=== PATIENT | female | born 1990 | race Caucasian/White ===

== ENCOUNTER → 2017-03-18 | Outpatient (CLI) | payer MEDICAID, SELFPAY | LOC: M RAD 13:46 | DX: M25.562 Pain in left knee (principal) | CPT/HCPCS: 73564 ==

== ENCOUNTER → 2017-03-21 | Outpatient (REF) | payer OTHER ==
[2017-03-21 12:26] LABS: ALBUMIN 3.7 GM/DL (3.2-5.2); ALBUMIN/GLOBULIN RATIO 1.28 (1.00-1.93); ALKALINE PHOSPHATASE 137 U/L (45-117); ALT/SGPT 18 U/L (12-78); ANION GAP 6 MEQ/L (8-16); AST/SGOT 11 U/L (7-37); BILIRUBIN,TOTAL 0.3 MG/DL (0.2-1.0); BLOOD UREA NITROGEN 18 MG/DL (7-18); CALCIUM LEVEL 8.5 MG/DL (8.5-10.1); CARBON DIOXIDE LEVEL 27 MEQ/L (21-32); CHLORIDE LEVEL 107 MEQ/L (98-107); CHOLESTEROL LEVEL 140 MG/DL (<200); CHOLESTEROL RISK RATIO 3.333 (<5); CREATININE FOR GFR 0.51 MG/DL (0.55-1.02); FREE T4 0.97 NG/DL (0.76-1.46); GLOMERULAR FILTRATION RATE > 60.0 (>60); GLUCOSE, FASTING 78 MG/DL (70-105); HDL CHOLESTEROL 42 MG/DL (>40); LDL CHOLESTEROL 86.6 MG/DL (<100); NON-HDL-C 98 MG/DL; POTASSIUM SERUM 4.7 MEQ/L (3.5-5.1); SODIUM LEVEL 140 MEQ/L (136-145); TOTAL PROTEIN 6.6 GM/DL (6.4-8.2); TRIGLYCERIDES LEVEL 57 MG/DL (<150)
[2017-03-21 12:30] LABS: BASO # 0.1 10^3/uL (0.0-0.2); BASO % 0.6 % (0.0-1.0); EOS # 0.3 10^3/uL (0.0-0.50); EOS % 3.1 % (0.0-3.0); HEMATOCRIT 40.3 % (36.0-47.0); IMMATURE GRANULOCYTE # 0.1 10^3/uL (0-0); IMMATURE GRANULOCYTE % 0.5 % (0-0); LYMPH # 1.8 10^3/uL (1.5-6.5); MEAN CORPUSCULAR HEMOGLOBIN 30.2 pg (27.0-33.0); MEAN CORPUSCULAR HGB CONC 32.3 g/dl (32.0-36.5); MEAN CORPUSCULAR VOLUME 93.7 fl (80.0-96.0); MONO # 0.5 10^3/uL (0.0-0.8); MONO % 5.3 % (0.0-5.0); NEUTROPHILS # 7.3 10^3/uL (1.8-7.7); NEUTROPHILS % 72.5 % (36.0-66.0); PLATELET COUNT, AUTOMATED 428 10^3/uL (150-450); WHITE BLOOD COUNT 10.1 10^3/uL (4.0-10.0)
== END ==
LOC: M SFHCPLAZ 08:44
DX: M25.562 Pain in left knee (principal); F32.9 Major depressive disorder, single episode, unspecified; Z00.00 Encounter for general adult medical examination without abnormal findings; F17.200 Nicotine dependence, unspecified, uncomplicated; Z13.220 Encounter for screening for lipoid disorders

== ENCOUNTER → 2017-05-01 | Outpatient (REF) | payer MEDICAID ==
[2017-05-01 19:01] LABS: TOTAL 25(OH) VITAMIN D 16.8 NG/ML (30.0-100.0)
== END ==
LOC: M SFHCPLAZ 15:22
DX: R74.8 Abnormal levels of other serum enzymes (principal)
CPT/HCPCS: 82306

== ENCOUNTER → 2017-07-24 | Outpatient (REF) | payer OTHER ==
[2017-07-24 12:25] LABS: ALBUMIN 3.9 GM/DL (3.2-5.2); ALBUMIN/GLOBULIN RATIO 1.26 (1.00-1.93); ALKALINE PHOSPHATASE 120 U/L (45-117); ALT/SGPT 22 U/L (12-78); ANION GAP 5 MEQ/L (8-16); AST/SGOT 10 U/L (7-37); BILIRUBIN,TOTAL 0.3 MG/DL (0.2-1.0); BLOOD UREA NITROGEN 17 MG/DL (7-18); CALCIUM LEVEL 8.7 MG/DL (8.5-10.1); CARBON DIOXIDE LEVEL 26 MEQ/L (21-32); CHLORIDE LEVEL 109 MEQ/L (98-107); CREATININE FOR GFR 0.62 MG/DL (0.55-1.30); GLOMERULAR FILTRATION RATE > 60.0 (>60); GLUCOSE, FASTING 81 MG/DL (70-100); POTASSIUM SERUM 4.4 MEQ/L (3.5-5.1); SODIUM LEVEL 140 MEQ/L (136-145)
== END ==
LOC: M SFHCPLAZ 10:01
DX: R74.8 Abnormal levels of other serum enzymes (principal)
CPT/HCPCS: 80053

== ENCOUNTER 2017-12-11 11:13 | Inpatient (IN) | payer OTHER ==
[2017-12-11 12:18] LABS: HEMATOCRIT 38.7 % (36.0-47.0); HEMOGLOBIN 12.9 g/dl (12.0-15.5); MEAN CORPUSCULAR HEMOGLOBIN 32.4 pg (27.0-33.0); MEAN CORPUSCULAR HGB CONC 33.3 g/dl (32.0-36.5); MEAN CORPUSCULAR VOLUME 97.2 fl (80.0-96.0); PLATELET COUNT, AUTOMATED 262 10^3/uL (150-450); RED BLOOD COUNT 3.98 10^6/uL (4.00-5.40); RED CELL DISTRIBUTION WIDTH 11.7 % (11.5-14.5); WHITE BLOOD COUNT 10.8 10^3/uL (4.0-10.0)
[2017-12-11 12:41] LABS: CONTROL LINE HCG INT CTR LINE PRESENT; HCG, SERUM QUALITATIVE POSITIVE (NEGATIVE)
[2017-12-11 12:48] LABS: ACETAMINOPHEN LEVEL < 2.0 UG/ML (10.0-30.0); ALBUMIN 3.3 GM/DL (3.2-5.2); ALBUMIN/GLOBULIN RATIO 0.94 (1.00-1.93); ALKALINE PHOSPHATASE 110 U/L (45-117); ALT/SGPT 14 U/L (12-78); ANION GAP 10 MEQ/L (8-16); AST/SGOT 8 U/L (7-37); BILIRUBIN,DIRECT 0.1 MG/DL (0.0-0.2); BILIRUBIN,TOTAL 0.3 MG/DL (0.2-1.0); BLOOD UREA NITROGEN 7 MG/DL (7-18); CALCIUM LEVEL 8.3 MG/DL (8.5-10.1); CARBON DIOXIDE LEVEL 22 MEQ/L (21-32); CHLORIDE LEVEL 107 MEQ/L (98-107); CREATININE FOR GFR 0.53 MG/DL (0.55-1.30); ETHYL ALCOHOL (ETHANOL) < 0.003 % (0.000-0.010); GLOMERULAR FILTRATION RATE > 60.0 (>60); GLUCOSE, FASTING 91 MG/DL (70-100); POTASSIUM SERUM 3.7 MEQ/L (3.5-5.1); SALICYLATE LEVEL 3.9 MG/DL (5.0-30.0); SODIUM LEVEL 139 MEQ/L (136-145); THYROID STIMULATING HORMONE 0.864 uIU/ML (0.358-3.740); TOTAL PROTEIN 6.8 GM/DL (6.4-8.2)
[2017-12-11 12:51] LABS: AMPHETAMINES LEVEL URINE NEGATIVE (NEGATIVE); BARBITURATES URINE NEGATIVE (NEGATIVE); BENZODIAZEPINES URINE NEGATIVE (NEGATIVE); CANNABINOIDS URINE NEGATIVE (NEGATIVE); COCAINE METABOLITE URINE NEGATIVE (NEGATIVE); METHADONE URINE NEGATIVE (NEGATIVE); OPIATES URINE NEGATIVE (NEGATIVE); PHENCYCLIDINE URINE NEGATIVE (NEGATIVE)
[2017-12-11 13:40] LABS: HCG, SERUM QUANTITATIVE 2319 MIU/ML
[2017-12-11] MEDS ORDERED: OLANZapine ORAL DISINTEGRATING TAB 5MG PO (16:15)
[2017-12-11] MEDS ORDERED: ACETAMINOPHEN TAB 650MG DOSE (2X325MG) PO (16:15)
[2017-12-11] MEDS ORDERED: traZODone 50 MG TAB PO (16:15)
[2017-12-11] MEDS ORDERED: MAALOX 30 ML SUSP *UDC PO (16:15)
[2017-12-11] MEDS ORDERED: MOM 30ML SUSPENSION UDC PO (16:15)
[2017-12-11] MEDS ORDERED: hydrOXYzine 50 MG TAB PO (16:30)
[2017-12-11] MEDS: CALCIUM CARBONATE 500 MG CHEW U/D PO (18:57)
[2017-12-11] MEDS: NICOTINE POLACRILEX 2 MG GUM PO (18:58)
[2017-12-12] MEDS: NICOTINE 2 MG PO ×3 (08:29→13:08)
[2017-12-12] MEDS: PRENATAL VITAMINS CHEWABLE TABLET PO (11:04)
== END 2017-12-12 16:13 | disposition home or self-care (01) | DRG 566 ==
LOC: M ED 11:13 → M ED INP 16:06 → M PSY 17:06
DX: O99.342 Other mental disorders complicating pregnancy, second trimester (principal); R45.851 Suicidal ideations; Z3A.21 21 weeks gestation of pregnancy; O99.332 Smoking (tobacco) complicating pregnancy, second trimester; F17.210 Nicotine dependence, cigarettes, uncomplicated; D72.829 Elevated white blood cell count, unspecified; Z88.6 Allergy status to analgesic agent; Z88.5 Allergy status to narcotic agent; F32.9 Major depressive disorder, single episode, unspecified

== ENCOUNTER → 2018-06-05 | Outpatient (REF) | payer OTHER ==
[~2018-06-05] MED LIST: PRENTAB7 PO; prenatal PO
[2018-06-05 11:58] LABS: BASO # 0.1 10^3/uL (0.0-0.2); BASO % 0.5 % (0.0-1.0); EOS # 0.2 10^3/uL (0.0-0.50); EOS % 2.1 % (0.0-3.0); HEMATOCRIT 44.4 % (36.0-47.0); HEMOGLOBIN 14.6 g/dl (12.0-15.5); LYMPH # 2.1 10^3/uL (1.5-6.5); MEAN CORPUSCULAR HEMOGLOBIN 31.9 pg (27.0-33.0); MEAN CORPUSCULAR HGB CONC 32.9 g/dl (32.0-36.5); MEAN CORPUSCULAR VOLUME 97.2 fl (80.0-96.0); MONO # 0.4 10^3/uL (0.0-0.8); NEUTROPHILS # 8.1 10^3/uL (1.8-7.7); NEUTROPHILS % 73.2 % (36.0-66.0); PLATELET COUNT, AUTOMATED 400 10^3/uL (150-450); RED BLOOD COUNT 4.57 10^6/uL (4.00-5.40); WHITE BLOOD COUNT 11.1 10^3/uL (4.0-10.0)
[2018-06-05 12:36] LABS: ALBUMIN 3.7 GM/DL (3.2-5.2); ALT/SGPT 25 U/L (12-78); BILIRUBIN,TOTAL 0.3 MG/DL (0.2-1.0); BLOOD UREA NITROGEN 12 MG/DL (7-18); CALCIUM LEVEL 8.9 MG/DL (8.5-10.1); CARBON DIOXIDE LEVEL 28 MEQ/L (21-32); CHLORIDE LEVEL 103 MEQ/L (98-107); CREATININE FOR GFR 0.64 MG/DL (0.55-1.30); GLOMERULAR FILTRATION RATE > 60.0 (>60); GLUCOSE, FASTING 54 MG/DL (70-100); SODIUM LEVEL 139 MEQ/L (136-145); TOTAL PROTEIN 6.7 GM/DL (6.4-8.2)
== END ==
LOC: M SFHCPLAZ 10:17
PROVIDERS: ATTEND Physician Assistant
DX: F32.9 Major depressive disorder, single episode, unspecified (principal); E55.9 Vitamin D deficiency, unspecified

== ENCOUNTER → 2020-07-07 | Outpatient (REF) ==
--- NOTE | 2020-07-07 13:00 | REP ---
INDICATION: DDD COMPARISON: 03/18/2017. TECHNIQUE: Five views left knee. FINDINGS: There is no acute fracture or dislocation. There is a small sclerotic bone island in the medial tibial plateau peripherally which is unchanged. Joint spaces appear normal. There is no radiographic evidence of a significant joint effusion. IMPRESSION: No fracture or dislocation. Normal joint spaces. Small stable bone island medial tibial plateau. <Electronically signed by Xiang Pratt > 07/07/20 [id number]
== END ==
LOC: M RAD 12:16
PROVIDERS: ATTEND Internal Medicine
DX: M17.12 Unilateral primary osteoarthritis, left knee (principal)

== ENCOUNTER → 2020-09-06 | Outpatient (REF) | LOC: M LAB 14:56 | PROVIDERS: ATTEND Nurse Practitioner Adult Health | DX: Z00.00 Encounter for general adult medical examination without abnormal findings (principal) ==

== ENCOUNTER → 2020-09-25 | Outpatient (REF) ==
[~2020-09-25] MED LIST changes: +COVID-19 VAC,AD26(JANSSEN)/PF 0.5ML SYRINGE (EUA) IM ONE
== END ==
LOC: M EMP 12:06
PROVIDERS: ATTEND Family Medicine
DX: Z23 Encounter for immunization (principal)

== ENCOUNTER → 2022-07-10 | Outpatient (CLI) | payer OTHER ==
[~2022-07-10] MED LIST changes: -COVID-19 VAC,AD26(JANSSEN)/PF 0.5ML SYRINGE (EUA) IM ONE
[2022-07-10 17:24] LABS: BASO # 0.1 10^3/uL (0.0-0.2); BASO % 0.6 % (0.0-1.0); EOS # 0.2 10^3/uL (0.0-0.5); EOS % 2.1 % (0.0-3.0); HEMATOCRIT 42.4 % (36.0-47.0); HEMOGLOBIN 13.4 g/dl (12.0-15.5); LYMPH # 2.7 10^3/uL (1.5-5.0); LYMPH % 24.3 % (24.0-44.0); MEAN CORPUSCULAR HGB CONC 31.6 g/dl (32.0-36.5); MEAN CORPUSCULAR VOLUME 91.8 fl (80.0-96.0); MONO # 0.6 10^3/uL (0.0-0.8); MONO % 5.8 % (2.0-8.0); NEUTROPHILS # 7.3 10^3/uL (1.5-8.5); NEUTROPHILS % 66.7 % (36.0-66.0); PLATELET COUNT, AUTOMATED 335 10^3/uL (150-450); RED BLOOD COUNT 4.62 10^6/uL (4.00-5.40); WHITE BLOOD COUNT 10.9 10^3/uL (4.0-10.0)
[2022-07-10 17:52] LABS: ALBUMIN 4.1 G/DL (3.2-5.2); ALKALINE PHOSPHATASE 150 U/L (46-116); ALT/SGPT 26 U/L (7.0-40); AST/SGOT 16 U/L (<34); BILIRUBIN,TOTAL 0.3 MG/DL (0.3-1.2); BLOOD UREA NITROGEN 11 MG/DL (9-23); CALCIUM LEVEL 9.3 MG/DL (8.5-10.1); CARBON DIOXIDE LEVEL 28 MMOL/L (20-31); CHLORIDE LEVEL 105 MMOL/L (98-107); CREATININE FOR GFR 0.62 MG/DL (0.55-1.30); GLOMERULAR FILTRATION RATE > 60.0 (>60); GLUCOSE, FASTING 71 MG/DL (60-100); SODIUM LEVEL 138 MMOL/L (136-145); TOTAL PROTEIN 6.9 G/DL (5.7-8.2)
[2022-07-10 17:54] LABS: TOTAL 25(OH) VITAMIN D 21.4 NG/ML (20.0-100.0)
[2022-07-10 17:55] LABS: RHEUMATOID FACTOR QUANT < 3.5 IU/ML (<14)
[2022-07-10 17:57] LABS: THYROID STIMULATING HORMONE 2.968 uIU/ML (0.55-4.78)
[2022-07-10 18:51] LABS: ERYTHROCYTE SEDIMENTATION RATE 22 mm/hr (0-20)
== END ==
LOC: M PLALAB 16:03
PROVIDERS: ATTEND Family Medicine
DX: E55.9 Vitamin D deficiency, unspecified (principal); F32.9 Major depressive disorder, single episode, unspecified; M25.50 Pain in unspecified joint

== ENCOUNTER → 2022-07-31 | Outpatient (CLI) | payer OTHER | LOC: M PLALAB 13:12 | PROVIDERS: ATTEND Family Medicine | DX: E16.2 Hypoglycemia, unspecified (principal) ==

== ENCOUNTER → 2022-08-21 | Outpatient (CLI) | payer OTHER | LOC: M WHC 12:03 | PROVIDERS: ATTEND Family Medicine | DX: N83.291 Other ovarian cyst, right side (principal) ==

== ENCOUNTER → 2022-10-03 | Outpatient (REF) | payer OTHER, MEDICAID | LOC: M SFHCPLAZ 15:07 | PROVIDERS: ATTEND Family Medicine | DX: Z12.4 Encounter for screening for malignant neoplasm of cervix (principal); N93.9 Abnormal uterine and vaginal bleeding, unspecified ==

== ENCOUNTER 2023-05-30 09:14 | Day surgery (SDC) | payer OTHER ==
[~2023-05-30] VITALS: Ht 177.8 cm; Wt 105.3 kg
[~2023-05-30 09:14] MED LIST changes: +BUPR150T12 PO; +BUPR300T92 PO; +FEXO-117 PO; +FLUT15.820; +GABA-1171 PO; +MELO7.5T35 PO; +PROA1AER2 INH
[2023-05-30 09:54] LABS: HEMATOCRIT 42.6 % (36.0-47.0); MEAN CORPUSCULAR HEMOGLOBIN 26.6 pg (27.0-33.0); MEAN CORPUSCULAR HGB CONC 30.5 g/dl (32.0-36.5); MEAN CORPUSCULAR VOLUME 87.3 fl (80.0-96.0); PLATELET COUNT, AUTOMATED 352 10^3/uL (150-450); RED BLOOD COUNT 4.88 10^6/uL (4.00-5.40)
[2023-05-30] MEDS ORDERED: ROCURONIUM BROMIDE 50MG/5ML VIAL As Ordered ONE (10:01)
[2023-05-30] MEDS ORDERED: propofoL 200 MG/20 ML VIAL As Ordered ONE (10:01)
[2023-05-30] MEDS ORDERED: ONDANSETRON 4MG 2ML VIAL As Ordered ONE (10:01)
[2023-05-30] MEDS ORDERED: LIDOCAINE 2% 100MG/5ML SDV (FOR ANES.) As Ordered ONE (10:01)
[2023-05-30] MEDS ORDERED: fentaNYL 100 MCG/2 ML INJECTION As Ordered ONE (10:02)
[2023-05-30] MEDS ORDERED: MIDAZOLAM INJ 2MG/2ML VIAL As Ordered ONE (10:02)
[2023-05-30] MEDS: LR 1,000 ML IV SCH (10:22)
[2023-05-30] MEDS: ceFAZolin SOD 2 GM in IV 1 EA IV ONE (11:37)
[2023-05-30] MEDS ORDERED: PHENYLephrine 500MCG 5ML (100MCG/ML) SYRINGE As Ordered ONE (12:04)
[2023-05-30] MEDS ORDERED: SUGAMMADEX SODIUM 500 MG/5 ML VIAL (BRIDION) As Ordered ONE (12:04)
[2023-05-30] MEDS ORDERED: HYDROmorphone HCL 2MG/ML 1ML VIAL As Ordered ONE (12:04)
[2023-05-30] MEDS ORDERED: ePHEDrine SULFATE 25 MG/5 ML(5MG/ML) SYRINGE As Ordered ONE (12:04)
[2023-05-30] MEDS ORDERED: ACETAMINOPHEN 1000MG 100ML IV BAG As Ordered ONE (12:19)
[2023-05-30] MEDS ORDERED: LR 1,000 ML IV SCH (13:50)
[2023-05-30] MEDS ORDERED: fentaNYL 100 MCG/2 ML INJECTION IV PRN (13:50)
[2023-05-30] MEDS ORDERED: ONDANSETRON 4MG 2ML VIAL IV PRN (13:50)
[2023-05-30] MEDS: oxyCODONE 5MG TAB PO PRN (14:21)
[2023-05-30] MEDS: HYDROMORPHONE HCL 0.5 MG/ 0.5 ML SYRINGE IV PRN (14:22)
[2023-05-30 15:40] VITALS: BP 140/91; TEMP 97.1; O2SAT 100
== END 2023-05-30 15:50 | disposition home or self-care (01) ==
LOC: M SDC 09:14
PROVIDERS: ATTEND Obstetrics & Gynecology
DX: N80.02 Deep endometriosis of the uterus (principal); Z88.5 Allergy status to narcotic agent; F31.9 Bipolar disorder, unspecified; Z79.899 Other long term (current) drug therapy
CPT/HCPCS: 36415; 58571; 81025; 85027; 86850; 86900; 86901; 88307; J0131; J0665; J0690; J1100; J1170; J2250; J2371; J2405; J3010; S2900

== ENCOUNTER → 2023-11-27 | Outpatient (REF) | payer MEDICAID, OTHER ==
[~2023-11-27] MED LIST changes: +BUPR-597 PO; -BUPR300T92 PO
[2023-11-27 18:20] LABS: HEMATOCRIT 42.6 % (36.0-47.0); HEMOGLOBIN 13.7 g/dl (12.0-15.5); MEAN CORPUSCULAR HEMOGLOBIN 30.7 pg (27.0-33.0); MEAN CORPUSCULAR HGB CONC 32.2 g/dl (32.0-36.5); MEAN CORPUSCULAR VOLUME 95.5 fl (80.0-96.0); PLATELET COUNT, AUTOMATED 289 10^3/uL (150-450); RED BLOOD COUNT 4.46 10^6/uL (4.00-5.40); WHITE BLOOD COUNT 8.7 10^3/uL (4.0-10.0)
[2023-11-27 18:44] LABS: ALBUMIN 3.7 G/DL (3.2-5.2); ALKALINE PHOSPHATASE 160 U/L (46-116); ALT/SGPT 55 U/L (7.0-40); AST/SGOT 23 U/L (<34); BILIRUBIN,TOTAL 0.2 MG/DL (0.3-1.2); BLOOD UREA NITROGEN 12 MG/DL (9-23); CALCIUM LEVEL 8.7 MG/DL (8.5-10.1); CARBON DIOXIDE LEVEL 27 MMOL/L (20-31); CHLORIDE LEVEL 105 MMOL/L (98-107); CREATININE FOR GFR 0.78 MG/DL (0.55-1.30); GLOMERULAR FILTRATION RATE > 60.0 (>60); GLUCOSE, FASTING 82 MG/DL (60-100); POTASSIUM SERUM 4.1 MMOL/L (3.5-5.1); SODIUM LEVEL 138 MMOL/L (136-145); TOTAL PROTEIN 6.9 G/DL (5.7-8.2)
[2023-11-27 18:48] LABS: THYROID STIMULATING HORMONE 2.529 uIU/ML (0.55-4.78)
== END ==
LOC: M PLALAB 17:11
PROVIDERS: ATTEND Family Medicine
DX: R55 Syncope and collapse (principal)